=== PATIENT | female | born 1995 | race Caucasian/White ===

== ENCOUNTER 2016-11-13 10:34 | Emergency (ER) | payer OTHER ==
[~2016-11-13] VITALS: Ht 160 cm; Wt 50.5 kg
[2016-11-13 10:43] VITALS: Ht 160 cm; Wt 50.5 kg
[2016-11-13] MEDS ORDERED: IBUP400T22 PO (12:24)
[2016-11-13] MEDS ORDERED: AZIT250T94 PO (12:24)
--- NOTE | 2016-11-13 12:29 | ERD ---
ER Documentation Chief Complaint Date/Time DATE: 11/13/16 TIME: 12:26 Chief Complaint sorethroat x 4 days HPI 21-year-old female who presents to the emergency department for concerns of throat pain and right ear pain. Patient states her pain started 5 days ago. Patient states initially she had throat pain. Patient reports pain with swallowing. Patient denies any trismus, drooling or hyperextension of her neck. Patient denies any current fevers or chills. Patient states she does have right ear pain. Patient denies any discharge or bleeding. Patient denies any drooling, trismus or hyperextension of her neck. Patient does report recently traveling to the leg. Patient leg. No sick contacts. Patient denies cough, rhinorrhea, abdominal pain, nausea, vomiting or LOC. ROS All systems reviewed and are negative except as per history of present illness. Medications Home Meds Active Scripts Ibuprofen* (Motrin*) 400 Mg Tab, 400 MG PO Q6, #30 TAB Prov:GRANT PLEITEZ PA-C 11/13/16 Azithromycin* (Zithromax*) 250 Mg Tablet, 250 MG PO .ZPACK DIRECTED, #6 TAB TAKE 500 MG (2 TABS) THE FIRST DAY THEN 250 MG (1 TAB) DAYS 2-5 Prov:GRANT PLEITEZ PA-C 11/13/16 Allergies Allergies: Coded Allergies: codeine (Verified Allergy, Unknown, swelling, 10/30/13) PMhx/Soc History of Surgery: No Anesthesia Reaction: No Hx Neurological Disorder: No Hx Respiratory Disorders: No Hx Cardiac Disorders: No Hx Psychiatric Problems: No Hx Miscellaneous Medical Probl: No Hx Alcohol Use: No Hx Substance Use: No Hx Tobacco Use: No Physical Exam Vitals Vital Signs Date Time Temp Pulse Resp B/P Pulse Ox O2 Delivery O2 Flow Rate FiO2 11/13/16 10:43 98.0 58 20 111/73 98 Physical Exam GENERAL: Well-developed, well-nourished female. Appears in no acute distress. Eating in full sentences. HEAD: Normocephalic, atraumatic. No deformities or ecchymosis. EYE: Pupils equal, round, and reactive to light. EOMs intact. No conjunctival erythema. No eye discharge. ENT: External ear without any masses or tenderness. Auditory canals clear bilaterally. Right tympanic membrane appears erythematous and bulging.. Nasal mucosa pink with no discharge. Oropharynx is erythematous however no tonsillar exudates are noted.. No uvula deviation. No kissing tonsils. No drooling. No trismus. NECK: Supple. No meningismus. Normal ROM of the neck. LUNG: Clear to auscultation bilaterally. No rhonchi, wheezing, rales or coarse breath sounds. HEART: Regular rate and rhythm. No murmurs, rubs or gallops. BACK: No midline tenderness. EXTREMITES: Equal pulses bilaterally. No peripheral clubbing, cyanosis or edema. No unilateral leg swelling. NEUROLOGIC: Alert and oriented to person, place and time. Moving all four extremities. 5/5 strength in all extremities. Normal speech. Steady gait. SKIN: Normal color. Warm and dry. No rashes or lesions. Procedures/MDM MEDICAL DECISION MAKING: This is a 19-year-old female presents with throat pain and right ear pain 5 days vital signs were reviewed. Patient was afebrile. Patient was not hypoxic. The patient does not have trismus, muffled voice, uvula deviation, unilateral tonsillar swelling, or drooling. Right tympanic membrane did appear erythematous and bulging. Given these findings, the patient's presentation is most consistent with acute otitis media and throat pain. I have a much lower clinical suspicion for epiglottitis, peritonsillar abscess, retropharyngeal abscess, dental abscess, meningitis or sepsis. Patient will be treated with a course of azithromycin given that she has an allergy to penicillin. PRESCRIPTIONS: Azithromycin, ibuprofen DISCHARGE: At this time, patient is stable for discharge and outpatient management. Supportive therapies such as OTC throat lozenges and warm salt water gurgles were discussed. I have instructed the patient to follow-up with his/her primary care physician in 1-2 days. I have discussed with the patient the possibility of needing to see a specialist for further workup and imaging studies if symptoms persist. I have instructed the patient to promptly return to the ER for any new or worsening symptoms including increased pain, fever, nausea, vomiting, weakness or LOC. The patient and/or family expressed understanding of and agreement with this plan. All questions were answered. Home care instructions were provided. Disclaimer: Inadvertent spelling and grammatical errors are likely due to EHR/ dictation software use and do not reflect on the overall quality of patient care. Also, please note that the electronic time recorded on this note does not necessarily reflect the actual time of the patient encounter. Departure Diagnosis: Primary Impression: Right otitis media Otitis media type: unspecified Chronicity: unspecified Qualified Code: H66.91 - Right otitis media, unspecified chronicity, unspecified otitis media type Additional Impression: Sore throat Condition: Stable Patient Instructions: Self-Care for Sore Throats, Otitis Media, Abx Tx (Adult) Referrals: [facility] YOU HAVE RECEIVED A MEDICAL SCREENING EXAM AND THE RESULTS INDICATE THAT YOU DO NOT HAVE A CONDITION THAT REQUIRES URGENT TREATMENT IN THE EMERGENCY DEPARTMENT. FURTHER EVALUATION AND TREATMENT OF YOUR CONDITION CAN WAIT UNTIL YOU ARE SEEN IN YOUR DOCTORS OFFICE WITHIN THE NEXT 1-2 DAYS. IT IS YOUR RESPONSIBILITY TO MAKE AN APPOINTMENT FOR FOLOW-UP CARE. IF YOU HAVE A PRIMARY DOCTOR --you should call your primary doctor and schedule an appointment IF YOU DO NOT HAVE A PRIMARY DOCTOR YOU CAN CALL OUR PHYSICIAN REFERRAL HOTLINE AT IF YOU CAN NOT AFFORD TO SEE A PHYSICIAN YOU CAN CHOSE FROM THE FOLLOWING [facility] [address] [facility]. [facility] [address] [facility]. [facility] [place] [address] [facility] [facility] [address] [facility]. [facility] [address] [facility]. [facility]. [address] [facility]. [facility] YOU HAVE RECEIVED A MEDICAL SCREENING EXAM AND THE RESULTS INDICATE THAT YOU DO NOT HAVE A CONDITION THAT REQUIRES URGENT TREATMENT IN THE EMERGENCY DEPARTMENT. FURTHER EVALUATION AND TREATMENT OF YOUR CONDITION CAN WAIT UNTIL YOU ARE SEEN IN YOUR DOCTORS OFFICE WITHIN THE NEXT 1-2 DAYS. IT IS YOUR RESPONSIBILITY TO MAKE AN APPOINTMENT FOR FOLOW-UP CARE. IF YOU HAVE A PRIMARY DOCTOR --you should call your primary doctor and schedule and appointment IF YOU DO NOT HAVE A PRIMARY DOCTOR YOU CAN CALL OUR PHYSICIAN REFERRAL HOTLINE AT . IF YOU CAN NOT AFFORD TO SEE A PHYSICIAN YOU CAN CHOSE FROM THE FOLLOWING [facility] INSTITUTIONS: [facility] [address] [place] [address] [facility] [address] [place] [address] [facility] [address] [place] [address] Additional Instructions: Call your primary care doctor TOMORROW for an appointment during the next 1-2 days.See the doctor sooner or return here if your condition worsens before your appointment time. GRANT PLEITEZ PA-C Nov 13, 2016 12:29
== END 2016-11-13 13:53 | disposition home or self-care (01) ==
LOC: FTE 10:34
DX: H66.91 Otitis media, unspecified, right ear (principal)
CPT/HCPCS: 99283

== ENCOUNTER 2016-11-27 12:57 | Emergency (ER) | payer OTHER ==
[~2016-11-27] VITALS: Wt 70.0 kg
[~2016-11-27 12:57] MED LIST: AZIT250T94 PO; IBUP400T22 PO
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
[2016-11-27] MEDS ORDERED: IBUP-1542 PO (14:40)
[2016-11-27] MEDS ORDERED: ONDA4TAB14 PO (14:41)
== END 2016-11-27 15:43 | disposition home or self-care (01) ==
LOC: FTE 12:57
DX: S16.1XXA Strain of muscle, fascia and tendon at neck level, initial encounter (principal); S79.911A Unspecified injury of right hip, initial encounter; S59.912A Unspecified injury of left forearm, initial encounter; V49.50XA Passenger injured in collision with unspecified motor vehicles in traffic accident, initial encounter
CPT/HCPCS: 99283

== ENCOUNTER 2017-03-20 22:54 | Emergency (ER) | END 2017-03-21 02:54 | disposition home or self-care (01) ==

== ENCOUNTER 2017-12-29 22:55 | Emergency (ER) | END 2017-12-30 02:47 | disposition home or self-care (01) ==